=== PATIENT | female | born 1935 | race Caucasian/White ===

== ENCOUNTER 2017-06-17 18:42 | Observation (INO) ==
[2017-06-17] MEDS ORDERED: ALUM/MAG/SIMETH/LIDO VISC 1:1 30 ML BOTTLE PO STA (19:46)
[2017-06-17] MEDS ORDERED: PANTOPRAZOLE 40 MG VIAL IV STA (19:46)
[2017-06-17 19:56] LABS: Basophils % 0.2 % (0.0-0.8); Eosinophils # 0.2 10*3/uL (0.0-0.87); Eosinophils % 1.7 % (0.00-10.9); Hematocrit 31.7 VOL% (35.7-47.0); Hemoglobin 10.8 GM/DL (12.0-16.0); Immature Granulocytes % 0.5 %; Immature Granulocytes Absolute 0.06 #; Lymphocytes # 1.2 10*3/uL (1.4-4.0); Lymphocytes % 9.9 % (21.3-54.2); Mean Corpuscular HGB Conc 34.1 GM/DL (32-36); Mean Corpuscular Hemoglobin 29 PG (27-34); Mean Corpuscular Volume 83.9 FL (87-102); Mean Platelet Volume 11.4 FL (9.6-12.0); Monocytes # 1.2 10*3/uL (0.11-0.8); Monocytes % 9.8 % (1.7-12.7); Neutrophils # 9.4 10*3/uL (1.4-7.4); Neutrophils % 77.9 % (38.7-73.9); Platelet Count 195 T/CUMM (130-400); Red Blood Count 3.78 MC/CUMM (3.8-5.5); Red Cell Distribution Width 13.3 % (9.3-17.3); White Blood Count 12.1 T/CUMM (4-12)
[2017-06-17 20:03] LABS: INR 1.1; PT Patient Result 11.8 SECS; Partial Thromboplastin Time 28.6 SECS (0-40)
[2017-06-17] MEDS ORDERED: ALUM/MAG/SIMETH/LIDO VISC 1:1 30 ML BOTTLE PO ONE (20:07)
[2017-06-17] MEDS ORDERED: PANTOPRAZOLE 40 MG VIAL IV ONE (20:07)
[2017-06-17 20:11] LABS: Alanine Aminotransferase 18 U/L (13-56); Albumin 3.5 G/DL (3.4-5.0); Alkaline Phosphatase 62 U/L (45-117); Aspartate Amino Transferase 19 U/L (0-37); Blood Urea Nitrogen 87 MG/DL (7-18); Calcium 9.1 MG/DL (8.5-10.1); Glucose 187 MG/DL (74-106); Magnesium 2.9 MG/DL (1.8-2.4); Osmolality,Calculated 295.5 MOS/KG (273-304); Potassium 2.9 MMOL/L (3.5-5.1); Sodium 132 MMOL/L (136-145); Total Protein 7.8 G/DL (6.4-8.3); Troponin I Only 0.018 NG/ML (0.00-0.045)
[2017-06-17 22:11] LABS: Apearance,Urine CLEAR (Clear); Bacteria,Urine Occasional /HPF (Few); Bilirubin,Urine Negative (Negative); Blood, Urine Negative (Negative); Glucose,Urine (UA) Negative (Negative); Ketones,Urine Negative (Negative); Nitrite,Urine Negative (Negative); Protein,Urine Negative; RBC,Urine <1 /HPF (0-4); Urine Color Straw (Yellow); Urine Specific Gravity 1.006 (1.001-1.035); Urine Urobilinogen < 2.0 EU/DL (0.2-1.0); WBC,Urine <1 /HPF (0-6)
[2017-06-17] MEDS ORDERED: ONDANSETRON 4 MG/2 ML VIAL IV PRN (23:23)
[2017-06-17] MEDS ORDERED: ACETAMINOPHEN 325 MG TABLET PO PRN (23:23)
[2017-06-17] MEDS ORDERED: DEXTROSE 50% 25 GM/50 ML VIAL IV PRN (23:23)
[2017-06-17] MEDS ORDERED: GLUCAGON 1 MG VIAL IM PRN (23:23)
[2017-06-17] MEDS ORDERED: POTASSIUM CHLORIDE RIDER 10 MEQ in PREMIX 1 EACH IV PRN (23:38)
[2017-06-17] MEDS ORDERED: traMADol 50 MG TABLET PO PRN (23:39)
[2017-06-18] MEDS: POTASSIUM CHLORIDE 20 MEQ TABLET PO PRN ×4 (03:24→13:36)
[2017-06-18 07:41] LABS: Magnesium 2.8 MG/DL (1.8-2.4); Potassium 2.6 MMOL/L (3.5-5.1)
[2017-06-18 07:45] LABS: Risk Ratio 3.68; VLDL CHOLESTEROL 18.4 MG/DL
[2017-06-18] MEDS ORDERED: ENOXAPARIN 30 MG/0.3 ML SYRINGE SUBCUT SCH (09:00)
[2017-06-18] MEDS ORDERED: LOSARTAN 50 MG TABLET PO SCH (09:00)
[2017-06-18] MEDS ORDERED: NAPROXEN 500 MG TABLET PO SCH (09:00)
[2017-06-18] MEDS ORDERED: FUROSEMIDE 80 MG TABLET PO SCH (09:00)
[2017-06-18] MEDS: FERROUS SULFATE 325 MG TABLET PO SCH (09:39)
[2017-06-18] MEDS: CARVEDILOL 6.25 MG TABLET PO SCH ×2 (09:39→20:37)
[2017-06-18] MEDS: CHOLECALCIFEROL 400 UNIT TABLET PO SCH (09:40)
[2017-06-18] MEDS: DONEPEZIL 5 MG TABLET PO SCH (09:40)
[2017-06-18] MEDS: ASPIRIN 325 MG TABLET PO SCH (09:40)
[2017-06-18] MEDS: cloNIDine 0.1 MG TABLET PO SCH (09:40)
[2017-06-18] MEDS: CALCIUM (CARBONATE)/VITAMIN D 600 MG-400 UNIT TABLET PO SCH (09:40)
[2017-06-18] MEDS: PANTOPRAZOLE 40 MG TABLET PO SCH (09:41)
[2017-06-18] MEDS: INSULIN LISPRO 100 UNIT/ML SUBCUT SCH ×4 (09:52→20:37)
[2017-06-18] MEDS ORDERED: VALSARTAN 80 MG TABLET PO SCH (11:30)
[2017-06-18] MEDS ORDERED: FUROSEMIDE 40 MG TABLET PO SCH (16:00)
[2017-06-18] MEDS: APIXABAN 2.5 MG TABLET PO SCH (20:36)
[2017-06-18] MEDS ORDERED: SIMVASTATIN 20 MG TABLET PO SCH (21:00)
[2017-06-19] MEDS: POTASSIUM CHLORIDE 20 MEQ TABLET PO PRN ×3 (02:24→07:10)
[2017-06-19 07:25] LABS: Calcium 8.9 MG/DL (8.5-10.1); Osmolality,Calculated 295.1 MOS/KG (273-304); Potassium 4.2 MMOL/L (3.5-5.1)
[2017-06-19] MEDS ORDERED: metOLazone 2.5 MG TABLET PO SCH (09:00)
[2017-06-19] MEDS: CALCIUM (CARBONATE)/VITAMIN D 600 MG-400 UNIT TABLET PO SCH (09:37)
[2017-06-19] MEDS: PANTOPRAZOLE 40 MG TABLET PO SCH (09:37)
[2017-06-19] MEDS: DONEPEZIL 5 MG TABLET PO SCH (09:37)
[2017-06-19] MEDS: ASPIRIN 325 MG TABLET PO SCH (09:37)
[2017-06-19] MEDS: FERROUS SULFATE 325 MG TABLET PO SCH (09:37)
[2017-06-19] MEDS: cloNIDine 0.1 MG TABLET PO SCH (09:38)
[2017-06-19] MEDS: CARVEDILOL 6.25 MG TABLET PO SCH (09:38)
[2017-06-19] MEDS: APIXABAN 2.5 MG TABLET PO SCH (09:38)
[2017-06-19] MEDS: INSULIN LISPRO 100 UNIT/ML SUBCUT SCH ×3 (09:42→18:42)
[2017-06-19] MEDS: CHOLECALCIFEROL 400 UNIT TABLET PO SCH (09:43)
[2017-06-19] MEDS ORDERED: PROPOFOL 200 MG/20 ML VIAL IV ONE ×2 (14:46→15:24)
[2017-06-19] MEDS ORDERED: ETOMIDATE 20 MG/10 ML VIAL IV ONE ×2 (14:46→15:25)
[2017-06-19] MEDS ORDERED: ALBUTEROL/IPRATROPIUM 3 ML NEB RESP TX ONE (15:12)
[2017-06-19] MEDS ORDERED: DEXTROSE 50% 25 GM/50 ML VIAL IV PRN (16:48)
[2017-06-19] MEDS ORDERED: GLUCAGON 1 MG VIAL IM PRN (16:48)
[2017-06-19 19:47] VITALS: BP 95/61
== END 2017-06-19 18:30 | disposition home or self-care (01) ==
LOC: N.ED 18:42 → N.EDINP 18:42 → N.2E 23:53
PROVIDERS: ADMIT Internal Medicine Geriatric Medicine; ATTEND Internal Medicine Geriatric Medicine

== ENCOUNTER 2017-06-21 14:17 | Inpatient (IN) ==
[2017-06-21] MEDS ORDERED: ONDANSETRON 4 MG/2 ML VIAL IV PRN (16:45)
[2017-06-21] MEDS ORDERED: ACETAMINOPHEN 325 MG TABLET PO PRN (16:45)
[2017-06-21 16:47] LABS: Basophils % 0.2 % (0.0-0.8); Eosinophils % 0.2 % (0.00-10.9); Hematocrit 28.4 VOL% (35.7-47.0); Hemoglobin 9.6 GM/DL (12.0-16.0); Immature Granulocytes % 1.4 %; Immature Granulocytes Absolute 0.29 #; Lymphocytes # 0.5 10*3/uL (1.4-4.0); Lymphocytes % 2.3 % (21.3-54.2); Mean Corpuscular HGB Conc 33.8 GM/DL (32-36); Mean Corpuscular Hemoglobin 29 PG (27-34); Mean Corpuscular Volume 85.5 FL (87-102); Mean Platelet Volume 11.4 FL (9.6-12.0); Monocytes # 0.4 10*3/uL (0.11-0.8); Monocytes % 2.1 % (1.7-12.7); Neutrophils # 18.8 10*3/uL (1.4-7.4); Neutrophils % 93.8 % (38.7-73.9); Platelet Count 125 T/CUMM (130-400); Red Blood Count 3.32 MC/CUMM (3.8-5.5)
[2017-06-21] MEDS ORDERED: SODIUM CHLORIDE 0.9% 1,000 ML IV ONE (16:49)
[2017-06-21] MEDS ORDERED: DEXTROSE 50% 25 GM/50 ML VIAL IV PRN (16:52)
[2017-06-21] MEDS ORDERED: GLUCAGON 1 MG VIAL IM PRN (16:52)
[2017-06-21 17:48] LABS: Albumin 2.6 G/DL (3.4-5.0); Bilirubin,Total 3.2 MG/DL (0.2-1.0); Calcium 8.5 MG/DL (8.5-10.1); Osmolality,Calculated 289.7 MOS/KG (273-304); Potassium 3.9 MMOL/L (3.5-5.1); Total Protein 6.1 G/DL (6.4-8.3)
[2017-06-21 17:52] LABS: Lactic Acid 2.1 MMOL/L (0.4-2.0)
[2017-06-21 17:56] LABS: Band Neutrophils 20 % (0-10); Lymphocytes 4 % (20-55); Platelet Estimate Adequate; Segmented Neutrophils 73 % (50-85); Total Cells Counted 100
[2017-06-21 17:57] LABS: Hypochromasia Slight
[2017-06-21 17:57] LABS: INR 1.5; PT Patient Result 15.2 SECS
[2017-06-21] MEDS ORDERED: AMPICILLIN/SULBACTAM 3,000 MG in SODIUM CHLORIDE 0.9% 100 ML IV SCH (18:00)
[2017-06-21] MEDS: SODIUM CHLORIDE 0.9% 1,000 ML IV STA ×2 (18:23→20:27)
[2017-06-21 18:32] LABS: Amorphous Crystals,Urine Occasional /HPF (Few); Apearance,Urine CLOUDY (Clear); Bacteria,Urine Many /HPF (Few); Blood, Urine Small mg/dL (Negative); Glucose,Urine (UA) Negative (Negative); Ketones,Urine Negative (Negative); Nitrite,Urine Negative (Negative); Protein,Urine 30 MG/DL; RBC,Urine 3 /HPF (0-4); Urine Color Amber (Yellow); Urine Specific Gravity 1.017 (1.001-1.035); WBC,Urine 14 /HPF (0-6)
[2017-06-21 18:33] LABS: Bilirubin,Urine Small mg/dL (Negative)
[2017-06-21] MEDS ORDERED: PIPERACILLIN/TAZOBACTAM 3,375 MG VIAL IV ONE (18:39)
[2017-06-21] MEDS ORDERED: PIPERACILLIN/TAZOBACTAM 3,375 MG in SODIUM CHLORIDE 0.9% 100 ML IV SCH (19:30)
[2017-06-21] MEDS: SODIUM CHLORIDE 0.9% 1,000 ML IV SCH (19:42)
[2017-06-21] MEDS: NOREPINEPHRINE 8 MG in SODIUM CHLORIDE 0.9% 242 ML IV SCH ×2 (20:20→23:36)
[2017-06-21] MEDS: PIPERACILLIN/TAZOBACTAM 3,375 MG in SODIUM CHLORIDE 0.9% 100 ML IV SCH (20:21)
[2017-06-21] MEDS ORDERED: fentaNYL 100 MCG/2 ML VIAL IV ONE (20:44)
[2017-06-21] MEDS ORDERED: SODIUM CHLORIDE 0.9% 1,000 ML IV SCH (23:00)
[2017-06-21] MEDS ORDERED: ONDANSETRON 4 MG/2 ML VIAL ONE (23:00)
[2017-06-21] MEDS ORDERED: PROPOFOL 200 MG/20 ML VIAL IV ONE (23:00)
[2017-06-21] MEDS ORDERED: DEXAMETHASONE 10 MG/1 ML VIAL ONE (23:00)
[2017-06-21] MEDS ORDERED: ETOMIDATE 20 MG/10 ML VIAL IV ONE (23:00)
[2017-06-21] MEDS ORDERED: NOREPINEPHRINE 4 MG/4 ML VIAL IV ONE (23:26)
[2017-06-22] MEDS ORDERED: MIDAZOLAM 2 MG/2 ML VIAL ONE (00:12)
[2017-06-22] MEDS: fentaNYL 100 MCG/2 ML VIAL IV PRN ×3 (00:40→17:13)
[2017-06-22] MEDS: metroNIDAZOLE INJ 500 MG in PREMIX 1 EACH IV SCH ×4 (01:02→22:01)
[2017-06-22] MEDS ORDERED: SODIUM CHLORIDE 0.9% 500 ML IV ONE (02:30)
[2017-06-22] MEDS: NOREPINEPHRINE 16 MG in SODIUM CHLORIDE 0.9% 234 ML IV SCH ×2 (03:44→10:05)
[2017-06-22] MEDS: SODIUM CHLORIDE 0.9% 1,000 ML IV SCH ×3 (03:47→20:21)
[2017-06-22] MEDS: PHENYLEPHRINE INJ 160 MG in SODIUM CHLORIDE 0.9% 234 ML IV SCH ×3 (04:02→19:56)
[2017-06-22 04:48] LABS: Basophils # 0.1 10*3/uL (0.0-0.2); Basophils % 0.2 % (0.0-0.8); Hematocrit 28.5 VOL% (35.7-47.0); Hemoglobin 9.3 GM/DL (12.0-16.0); Immature Granulocytes % 9.3 %; Immature Granulocytes Absolute 2.31 #; Lymphocytes # 0.2 10*3/uL (1.4-4.0); Lymphocytes % 0.7 % (21.3-54.2); Mean Corpuscular HGB Conc 32.6 GM/DL (32-36); Mean Corpuscular Hemoglobin 28 PG (27-34); Mean Corpuscular Volume 86.4 FL (87-102); Mean Platelet Volume 11.3 FL (9.6-12.0); Monocytes # 0.4 10*3/uL (0.11-0.8); Monocytes % 1.5 % (1.7-12.7); Neutrophils # 21.9 10*3/uL (1.4-7.4); Neutrophils % 88.3 % (38.7-73.9); Platelet Count 149 T/CUMM (130-400); Red Cell Distribution Width 13.9 % (9.3-17.3); White Blood Count 24.8 T/CUMM (4-12)
[2017-06-22 05:35] LABS: Albumin 2.3 G/DL (3.4-5.0); Bilirubin,Total 4.3 MG/DL (0.2-1.0); Calcium 7.6 MG/DL (8.5-10.1); Total Protein 5.4 G/DL (6.4-8.3)
[2017-06-22] MEDS ORDERED: ACETAMINOPHEN 650 MG SUPP RECTAL PRN (06:02)
[2017-06-22] MEDS ORDERED: SODIUM CHLORIDE 0.9% 1,000 ML IV ONE (06:02)
[2017-06-22 06:06] LABS: Band Neutrophils 4 % (0-10); Lymphocytes 1 % (20-55); Segmented Neutrophils 93 % (50-85); Total Cells Counted 100
[2017-06-22 06:07] LABS: Burr Cells Slight; Giant Platelets Few; Hypochromasia Slight; Ovalocytes Slight; Platelet Estimate Normal
[2017-06-22] MEDS ORDERED: VANCOMYCIN INJ 1,500 MG in SODIUM CHLORIDE 0.9% 500 ML IV ONE (06:12)
[2017-06-22] MEDS ORDERED: VANCOMYCIN INJ 1,250 MG in SODIUM CHLORIDE 0.9% 250 ML IV PRN (06:30)
[2017-06-22] MEDS: PIPERACILLIN/TAZOBACTAM 3,375 MG in SODIUM CHLORIDE 0.9% 100 ML IV SCH ×2 (11:47→23:45)
[2017-06-22] MEDS ORDERED: ALBUTEROL/IPRATROPIUM 3 ML NEB RESP TX PRN (21:09)
[2017-06-22] MEDS: ALBUTEROL/IPRATROPIUM 3 ML NEB RESP TX SCH (23:29)
[2017-06-23] MEDS: PHENYLEPHRINE INJ 160 MG in SODIUM CHLORIDE 0.9% 234 ML IV SCH ×4 (02:20→17:48)
[2017-06-23] MEDS: ALBUTEROL/IPRATROPIUM 3 ML NEB RESP TX SCH ×6 (02:37→23:39)
[2017-06-23] MEDS: SODIUM CHLORIDE 0.9% 1,000 ML IV SCH ×2 (05:28→13:31)
[2017-06-23] MEDS: metroNIDAZOLE INJ 500 MG in PREMIX 1 EACH IV SCH ×3 (05:30→18:49)
[2017-06-23] MEDS: NOREPINEPHRINE 16 MG in SODIUM CHLORIDE 0.9% 234 ML IV SCH (05:32)
[2017-06-23 05:35] LABS: Basophils # 0.1 10*3/uL (0.0-0.2); Basophils % 0.3 % (0.0-0.8); Hematocrit 30.8 VOL% (35.7-47.0); Hemoglobin 9.7 GM/DL (12.0-16.0); Immature Granulocytes % 7.8 %; Immature Granulocytes Absolute 2.38 #; Lymphocytes # 0.6 10*3/uL (1.4-4.0); Lymphocytes % 1.8 % (21.3-54.2); Mean Corpuscular HGB Conc 31.5 GM/DL (32-36); Mean Corpuscular Hemoglobin 28 PG (27-34); Mean Platelet Volume 11.3 FL (9.6-12.0); Monocytes # 1.9 10*3/uL (0.11-0.8); Monocytes % 6.1 % (1.7-12.7); Neutrophils # 25.7 10*3/uL (1.4-7.4); Platelet Count 186 T/CUMM (130-400); Red Blood Count 3.46 MC/CUMM (3.8-5.5); Red Cell Distribution Width 14.6 % (9.3-17.3); White Blood Count 30.6 T/CUMM (4-12)
[2017-06-23 06:08] LABS: Albumin 2.2 G/DL (3.4-5.0); Bilirubin,Total 4.3 MG/DL (0.2-1.0); Calcium 7.4 MG/DL (8.5-10.1); Osmolality,Calculated 302.5 MOS/KG (273-304); Potassium 4.9 MMOL/L (3.5-5.1); Total Protein 5.4 G/DL (6.4-8.3)
[2017-06-23 06:37] LABS: Band Neutrophils 1 % (0-10); Hypochromasia 1+; Lymphocytes 3 % (20-55); Platelet Estimate Normal; Segmented Neutrophils 91 % (50-85); Total Cells Counted 100
[2017-06-23] MEDS: PIPERACILLIN/TAZOBACTAM 3,375 MG in SODIUM CHLORIDE 0.9% 100 ML IV SCH ×2 (11:45→23:11)
[2017-06-23] MEDS: CIPROFLOXACIN INJ 400 MG in PREMIX 1 EACH IV SCH (18:35)
[2017-06-23] MEDS: fentaNYL 100 MCG/2 ML VIAL IV PRN (21:29)
[2017-06-24] MEDS: metroNIDAZOLE INJ 500 MG in PREMIX 1 EACH IV SCH ×4 (00:13→18:11)
[2017-06-24] MEDS: PHENYLEPHRINE INJ 160 MG in SODIUM CHLORIDE 0.9% 234 ML IV SCH ×3 (01:15→17:23)
[2017-06-24] MEDS: NOREPINEPHRINE 16 MG in SODIUM CHLORIDE 0.9% 234 ML IV SCH (01:30)
[2017-06-24] MEDS: SODIUM CHLORIDE 0.9% 1,000 ML IV SCH ×2 (01:57→11:34)
[2017-06-24] MEDS: fentaNYL 100 MCG/2 ML VIAL IV PRN ×3 (03:20→11:45)
[2017-06-24] MEDS ORDERED: NITROGLYCERIN SL 0.4 MG TABLET SL PRN (03:33)
[2017-06-24] MEDS ORDERED: NITROGLYCERIN SL 0.4 MG TABLET SL ONE (03:36)
[2017-06-24 03:50] LABS: Basophils # 0.1 10*3/uL (0.0-0.2); Basophils % 0.2 % (0.0-0.8); Hematocrit 30.4 VOL% (35.7-47.0); Hemoglobin 9.7 GM/DL (12.0-16.0); Immature Granulocytes % 1.1 %; Immature Granulocytes Absolute 0.39 #; Lymphocytes # 0.8 10*3/uL (1.4-4.0); Lymphocytes % 2.4 % (21.3-54.2); Mean Corpuscular HGB Conc 31.9 GM/DL (32-36); Mean Corpuscular Hemoglobin 28 PG (27-34); Mean Corpuscular Volume 87.1 FL (87-102); Monocytes # 2.8 10*3/uL (0.11-0.8); Monocytes % 7.9 % (1.7-12.7); NRBC # 0.09 10*3/uL; Neutrophils # 30.9 10*3/uL (1.4-7.4); Neutrophils % 88.4 % (38.7-73.9); Platelet Count 175 T/CUMM (130-400); Red Blood Count 3.49 MC/CUMM (3.8-5.5); Red Cell Distribution Width 14.7 % (9.3-17.3); White Blood Count 34.9 T/CUMM (4-12)
[2017-06-24 03:59] LABS: INR 2.1
[2017-06-24 04:01] LABS: ABG Base Excess -10.8 MMOL/L (-2.5-2.5); ABG HCO3 15.9 MMOL/L (20-26); ABG PCO2 31.8 MM HG (35-48); ABG PH 7.282 (7.35-7.45)
[2017-06-24 04:07] LABS: PT Patient Result 21.4 SECS
[2017-06-24] MEDS: ALBUTEROL/IPRATROPIUM 3 ML NEB RESP TX SCH ×5 (04:10→20:29)
[2017-06-24 04:15] LABS: Calcium 7.2 MG/DL (8.5-10.1); Osmolality,Calculated 306.5 MOS/KG (273-304); Potassium 5.1 MMOL/L (3.5-5.1)
[2017-06-24 04:19] LABS: Albumin 2.1 G/DL (3.4-5.0); Bilirubin,Direct 3.66 MG/DL (0.0-0.20); Bilirubin,Indirect 0.7 MG/DL (0.0-1.0); Bilirubin,Total 4.4 MG/DL (0.2-1.0); Lactic Acid 1.8 MMOL/L (0.4-2.0); Total Protein 5.6 G/DL (6.4-8.3)
[2017-06-24 05:09] LABS: Band Neutrophils 1 % (0-10); Burr Cells Slight; Giant Platelets Few; Hypochromasia Slight; Lymphocytes 3 % (20-55); Nucleated Red Blood Cells 1 (0-5); Ovalocytes Slight; Platelet Estimate Normal; Segmented Neutrophils 84 % (50-85); Total Cells Counted 100
[2017-06-24] MEDS ORDERED: PHYTONADIONE 10 MG/1 ML AMP IV ONE (06:28)
[2017-06-24] MEDS ORDERED: SODIUM CHLORIDE 0.9% 250 ML IV PRN (06:28)
[2017-06-24] MEDS ORDERED: VANCOMYCIN INJ 1,500 MG in SODIUM CHLORIDE 0.9% 500 ML IV ONE (10:00)
[2017-06-24] MEDS: PIPERACILLIN/TAZOBACTAM 3,375 MG in SODIUM CHLORIDE 0.9% 100 ML IV SCH (11:34)
[2017-06-24 14:30] LABS: INR 1.8
[2017-06-24] MEDS ORDERED: LIDOCAINE 1%/EPI INJ 20 ML VIAL ONE (16:09)
[2017-06-24] MEDS: CIPROFLOXACIN INJ 400 MG in PREMIX 1 EACH IV SCH (17:24)
[2017-06-24] MEDS ORDERED: ROCURONIUM 100 MG/10 ML VIAL IV ONE (18:12)
[2017-06-24] MEDS ORDERED: ETOMIDATE 20 MG/10 ML VIAL IV ONE (18:12)
[2017-06-24] MEDS ORDERED: LIDOCAINE 1% 5 ML VIAL ONE (18:12)
[2017-06-24] MEDS ORDERED: SODIUM BICARBONATE 50 MEQ/50 ML VIAL IV ONE (18:12)
[2017-06-24] MEDS ORDERED: CALCIUM CHLORIDE 1,000 MG/10 ML VIAL IV ONE (18:12)
[2017-06-24] MEDS ORDERED: HEPARIN 5,000 UNIT/1 ML VIAL ONE (19:41)
[2017-06-24 19:42] LABS: ABG Base Excess -13.5 MMOL/L (-2.5-2.5); ABG Oxygen Saturation 99.9 % (95-100); ABG PCO2 31.8 MM HG (35-48); ABG PH 7.226 (7.35-7.45); ABG TCO2 12.2 MMOL/L (23-27); Glucose Heart Surgery 117 MG/DL (74-106); Hematocrit Heart Surgery 32.5 PERCENT (37-47); Hemoglobin Heart Surgery 10.5 G/DL (12.0-16.0); Ionized Calcium Arterial 1.19 MMOL/L (1.21-1.46); PCO2 Patient Temp Arterial 31.8 MMHG; PH Patient Temp Arterial 7.226; Patient Temperature 37 CELCIUS; Potassium Heart/CVR 4.9 MMOL/L (3.5-5.1); Sodium Heart/CVR 135 MMOL/L (135-145)
[2017-06-24] MEDS ORDERED: SODIUM BICARBONATE 50 MEQ/50 ML SYRINGE IV ONE (19:49)
[2017-06-24] MEDS ORDERED: INFLUENZA VIRUS VACCINE 0.5 ML SYRINGE IM ONE (19:55)
[2017-06-24 21:13] LABS: ABG Base Excess -11.1 MMOL/L (-2.5-2.5); ABG HCO3 15.7 MMOL/L (20-26); ABG PCO2 33.4 MM HG (35-48); ABG PH 7.263 (7.35-7.45); ABG TCO2 13.7 MMOL/L (23-27)
[2017-06-24 21:16] LABS: INR 1.5; PT Patient Result 15.5 SECS; Partial Thromboplastin Time 31.5 SECS (0-40)
[2017-06-24] MEDS ORDERED: SEVOFLURANE 1 UNIT/15 MINUTE INH ONE (21:16)
[2017-06-24] MEDS ORDERED: MIDAZOLAM 10 MG/2 ML VIAL ONE (21:16)
[2017-06-24] MEDS ORDERED: fentaNYL 100 MCG/2 ML VIAL ONE (21:16)
[2017-06-24 21:17] LABS: Basophils % 0.1 % (0.0-0.8); Hematocrit 32.4 VOL% (35.7-47.0); Hemoglobin 10.6 GM/DL (12.0-16.0); Immature Granulocytes % 1.6 %; Immature Granulocytes Absolute 0.36 #; Lymphocytes # 0.8 10*3/uL (1.4-4.0); Lymphocytes % 3.6 % (21.3-54.2); Mean Corpuscular HGB Conc 32.7 GM/DL (32-36); Mean Corpuscular Hemoglobin 29 PG (27-34); Mean Corpuscular Volume 88.3 FL (87-102); Mean Platelet Volume 11.1 FL (9.6-12.0); Monocytes # 1.3 10*3/uL (0.11-0.8); Neutrophils # 19.3 10*3/uL (1.4-7.4); Neutrophils % 88.7 % (38.7-73.9); Red Blood Count 3.67 MC/CUMM (3.8-5.5); White Blood Count 21.8 T/CUMM (4-12)
[2017-06-24] MEDS ORDERED: SODIUM CHLORIDE 0.9% 2,000 ML IV ONE (21:17)
[2017-06-24] MEDS ORDERED: MIDAZOLAM 2 MG/2 ML VIAL ONE (21:17)
[2017-06-24] MEDS ORDERED: ePHEDrine 50 MG/ML AMP ONE (21:17)
[2017-06-24 21:24] LABS: Platelet Count 88 T/CUMM (130-400)
[2017-06-24 21:33] LABS: Albumin 2.3 G/DL (3.4-5.0); Bilirubin,Total 4.5 MG/DL (0.2-1.0); Calcium 8.4 MG/DL (8.5-10.1); Lactic Acid 1.7 MMOL/L (0.4-2.0); Potassium 4.8 MMOL/L (3.5-5.1)
[2017-06-24] MEDS: SODIUM BICARB INJ 150 MEQ in DEXTROSE 5% 1,000 ML IV SCH (21:42)
[2017-06-24] MEDS: PROPOFOL 1,000 MG/100 ML BOTTLE IV SCH (22:00)
[2017-06-25] MEDS: ALBUTEROL/IPRATROPIUM 3 ML NEB RESP TX SCH ×7 (00:15→23:43)
[2017-06-25] MEDS: fentaNYL 100 MCG/2 ML VIAL IV PRN (01:04)
[2017-06-25] MEDS: metroNIDAZOLE INJ 500 MG in PREMIX 1 EACH IV SCH ×3 (01:32→12:43)
[2017-06-25] MEDS: NOREPINEPHRINE 16 MG in SODIUM CHLORIDE 0.9% 234 ML IV SCH (01:35)
[2017-06-25] MEDS ORDERED: SODIUM BICARBONATE 50 MEQ/50 ML SYRINGE IV ONE ×2 (02:18→02:24)
[2017-06-25 04:18] LABS: ABG Base Excess -8.3 MMOL/L (-2.5-2.5); ABG HCO3 17.8 MMOL/L (20-26); ABG Oxygen Saturation 99.8 % (95-100); ABG PCO2 29.9 MM HG (35-48); ABG PH 7.346 (7.35-7.45); ABG TCO2 14.8 MMOL/L (23-27)
[2017-06-25 04:24] LABS: Basophils # 0.1 10*3/uL (0.0-0.2); Basophils % 0.2 % (0.0-0.8); Hematocrit 32.3 VOL% (35.7-47.0); Immature Granulocytes % 1.4 %; Immature Granulocytes Absolute 0.34 #; Lymphocytes # 0.7 10*3/uL (1.4-4.0); Mean Corpuscular HGB Conc 34.1 GM/DL (32-36); Mean Corpuscular Hemoglobin 29 PG (27-34); Mean Platelet Volume 11.1 FL (9.6-12.0); Monocytes # 1.6 10*3/uL (0.11-0.8); Monocytes % 6.3 % (1.7-12.7); NRBC # 0.07 10*3/uL; Neutrophils # 21.9 10*3/uL (1.4-7.4); Neutrophils % 89.1 % (38.7-73.9); Platelet Count 106 T/CUMM (130-400); Red Cell Distribution Width 15.2 % (9.3-17.3); White Blood Count 24.6 T/CUMM (4-12)
[2017-06-25 04:52] LABS: Albumin 2.2 G/DL (3.4-5.0); Bilirubin,Total 6.4 MG/DL (0.2-1.0); Calcium 8.3 MG/DL (8.5-10.1); Osmolality,Calculated 319.1 MOS/KG (273-304); Potassium 4.7 MMOL/L (3.5-5.1); Total Protein 5.2 G/DL (6.4-8.3)
[2017-06-25] MEDS: MIDAZOLAM 2 MG/2 ML VIAL IV PRN ×4 (04:57→20:48)
[2017-06-25 05:25] LABS: Band Neutrophils 1 % (0-10); Burr Cells Slight; Hypochromasia Slight; Lymphocytes 5 % (20-55); Ovalocytes Slight; Platelet Estimate Decreased; Segmented Neutrophils 88 % (50-85); Total Cells Counted 100
[2017-06-25 05:41] LABS: Band Neutrophils 2 % (0-10); Lymphocytes 4 % (20-55); Platelet Estimate Decreased; Segmented Neutrophils 86 % (50-85)
[2017-06-25 05:42] LABS: Ovalocytes Few; Total Cells Counted 100
[2017-06-25] MEDS: PHENYLEPHRINE INJ 160 MG in SODIUM CHLORIDE 0.9% 234 ML IV SCH ×3 (06:16→20:41)
[2017-06-25] MEDS: SODIUM BICARB INJ 150 MEQ in DEXTROSE 5% 1,000 ML IV SCH ×2 (08:57→17:49)
[2017-06-25] MEDS: PIPERACILLIN/TAZOBACTAM 3,375 MG in SODIUM CHLORIDE 0.9% 100 ML IV SCH ×3 (10:56→22:24)
[2017-06-25] MEDS ORDERED: GLUCAGON 1 MG VIAL IM PRN (11:54)
[2017-06-25] MEDS ORDERED: DEXTROSE 50% 25 GM/50 ML VIAL IV PRN (11:54)
[2017-06-25] MEDS: INSULIN LISPRO 100 UNIT/ML SUBCUT SCH ×2 (12:34→18:38)
[2017-06-25] MEDS ORDERED: DAPTOmycin 500 MG in SODIUM CHLORIDE 0.9% 50 ML IV SCH (16:30)
[2017-06-25] MEDS: CIPROFLOXACIN INJ 400 MG in PREMIX 1 EACH IV SCH (17:48)
[2017-06-25] MEDS: PROPOFOL 1,000 MG/100 ML BOTTLE IV SCH (22:16)
[2017-06-26] MEDS: INSULIN LISPRO 100 UNIT/ML SUBCUT SCH ×4 (00:42→18:46)
[2017-06-26] MEDS: MIDAZOLAM 2 MG/2 ML VIAL IV PRN (02:21)
[2017-06-26] MEDS: ALBUTEROL/IPRATROPIUM 3 ML NEB RESP TX SCH ×5 (03:26→19:34)
[2017-06-26] MEDS: SODIUM BICARB INJ 150 MEQ in DEXTROSE 5% 1,000 ML IV SCH ×2 (03:31→15:10)
[2017-06-26 04:52] LABS: ABG Base Excess -0.8 MMOL/L (-2.5-2.5); ABG HCO3 23.8 MMOL/L (20-26); ABG Oxygen Saturation 99.9 % (95-100); ABG PCO2 29.8 MM HG (35-48); ABG PH 7.476 (7.35-7.45); ABG TCO2 19.8 MMOL/L (23-27)
[2017-06-26 05:08] LABS: Basophils % 0.2 % (0.0-0.8); Eosinophils # 0.1 10*3/uL (0.0-0.87); Eosinophils % 0.3 % (0.00-10.9); Hematocrit 30.5 VOL% (35.7-47.0); Hemoglobin 10.6 GM/DL (12.0-16.0); Immature Granulocytes % 3.6 %; Immature Granulocytes Absolute 0.86 #; Lymphocytes # 1.3 10*3/uL (1.4-4.0); Lymphocytes % 5.4 % (21.3-54.2); Mean Corpuscular HGB Conc 34.8 GM/DL (32-36); Mean Corpuscular Hemoglobin 28 PG (27-34); Mean Corpuscular Volume 81.1 FL (87-102); Mean Platelet Volume 12.2 FL (9.6-12.0); Monocytes % 8.4 % (1.7-12.7); NRBC # 0.37 10*3/uL; Neutrophils # 19.7 10*3/uL (1.4-7.4); Neutrophils % 82.1 % (38.7-73.9); Platelet Count 101 T/CUMM (130-400); Red Blood Count 3.76 MC/CUMM (3.8-5.5); Red Cell Distribution Width 14.9 % (9.3-17.3)
[2017-06-26 05:30] LABS: Albumin 1.9 G/DL (3.4-5.0); Bilirubin,Direct 6.47 MG/DL (0.0-0.20); Bilirubin,Total 7.7 MG/DL (0.2-1.0); Calcium 7.3 MG/DL (8.5-10.1); Osmolality,Calculated 325.1 MOS/KG (273-304); Potassium 3.8 MMOL/L (3.5-5.1); Total Protein 4.6 G/DL (6.4-8.3)
[2017-06-26 05:52] LABS: Band Neutrophils 2 % (0-10); Giant Platelets Few; Hypochromasia 1+; Lymphocytes 6 % (20-55); Macrocytosis Slight; Nucleated Red Blood Cells 2 (0-5); Ovalocytes Slight; Platelet Estimate Decreased; Polychromasia Slight; Segmented Neutrophils 79 % (50-85); Total Cells Counted 100
[2017-06-26] MEDS: NOREPINEPHRINE 16 MG in SODIUM CHLORIDE 0.9% 234 ML IV SCH (07:41)
[2017-06-26] MEDS: PHENYLEPHRINE INJ 160 MG in SODIUM CHLORIDE 0.9% 234 ML IV SCH ×2 (07:42→16:01)
[2017-06-26] MEDS: fentaNYL 100 MCG/2 ML VIAL IV PRN ×4 (08:16→21:16)
[2017-06-26] MEDS: PIPERACILLIN/TAZOBACTAM 3,375 MG in SODIUM CHLORIDE 0.9% 100 ML IV SCH (12:04)
[2017-06-26] MEDS: LINEZOLID INJ 600 MG in PREMIX 1 EACH IV SCH (15:29)
[2017-06-26] MEDS: PROPOFOL 1,000 MG/100 ML BOTTLE IV SCH (19:00)
[2017-06-26] MEDS: INSULIN GLARGINE 100 UNIT/ML SUBCUT SCH (21:21)
[2017-06-27] MEDS: PIPERACILLIN/TAZOBACTAM 3,375 MG in SODIUM CHLORIDE 0.9% 100 ML IV SCH ×3 (00:01→23:49)
[2017-06-27] MEDS: HYDROmorphone 2 MG/1 ML VIAL IV PRN ×2 (00:03→11:29)
[2017-06-27] MEDS: INSULIN LISPRO 100 UNIT/ML SUBCUT SCH ×5 (00:12→23:54)
[2017-06-27] MEDS: ALBUTEROL/IPRATROPIUM 3 ML NEB RESP TX SCH ×6 (00:18→19:36)
[2017-06-27] MEDS: LINEZOLID INJ 600 MG in PREMIX 1 EACH IV SCH ×2 (03:23→15:04)
[2017-06-27] MEDS: PHENYLEPHRINE INJ 160 MG in SODIUM CHLORIDE 0.9% 234 ML IV SCH (03:23)
[2017-06-27] MEDS: fentaNYL 100 MCG/2 ML VIAL IV PRN ×3 (04:13→23:57)
[2017-06-27 05:11] LABS: ABG Base Excess 4.4 MMOL/L (-2.5-2.5); ABG HCO3 28.4 MMOL/L (20-26); ABG Oxygen Saturation 99.4 % (95-100); ABG PCO2 31.4 MM HG (35-48); ABG PH 7.536 (7.35-7.45); ABG TCO2 23.9 MMOL/L (23-27); Allen Test Positive; Pt O2 Delivery Device Ventilator
[2017-06-27] MEDS: NOREPINEPHRINE 16 MG in SODIUM CHLORIDE 0.9% 234 ML IV SCH ×2 (05:17→23:55)
[2017-06-27 05:43] LABS: Basophils % 0.2 % (0.0-0.8); Eosinophils # 0.2 10*3/uL (0.0-0.87); Eosinophils % 0.9 % (0.00-10.9); Hematocrit 31.6 VOL% (35.7-47.0); Hemoglobin 10.9 GM/DL (12.0-16.0); Immature Granulocytes % 4.7 %; Immature Granulocytes Absolute 1.01 #; Lymphocytes # 2.2 10*3/uL (1.4-4.0); Mean Corpuscular HGB Conc 34.5 GM/DL (32-36); Mean Corpuscular Hemoglobin 28 PG (27-34); Mean Platelet Volume 12.3 FL (9.6-12.0); Monocytes # 2.2 10*3/uL (0.11-0.8); Monocytes % 10.3 % (1.7-12.7); NRBC # 0.83 10*3/uL; Neutrophils # 15.9 10*3/uL (1.4-7.4); Neutrophils % 73.9 % (38.7-73.9); Red Cell Distribution Width 15.3 % (9.3-17.3); White Blood Count 21.5 T/CUMM (4-12)
[2017-06-27 05:44] LABS: Platelet Count 81 T/CUMM (130-400)
[2017-06-27] MEDS: SODIUM BICARB INJ 150 MEQ in DEXTROSE 5% 1,000 ML IV SCH ×6 (05:48→21:41)
[2017-06-27 06:18] LABS: Albumin 1.8 G/DL (3.4-5.0); Bilirubin,Total 9.1 MG/DL (0.2-1.0); Calcium 7.3 MG/DL (8.5-10.1); Osmolality,Calculated 320.1 MOS/KG (273-304); Potassium 3.8 MMOL/L (3.5-5.1); Total Protein 4.6 G/DL (6.4-8.3)
[2017-06-27 06:29] LABS: Band Neutrophils 1 % (0-10); Lymphocytes 8 % (20-55); Nucleated Red Blood Cells 6 (0-5); Platelet Estimate Decreased; Segmented Neutrophils 78 % (50-85); Total Cells Counted 100
[2017-06-27 06:30] LABS: Burr Cells Slight; Giant Platelets Few; Hypochromasia 1+; Macrocytosis Slight; Ovalocytes Slight; Polychromasia Slight
[2017-06-27] MEDS ORDERED: PANTOPRAZOLE 40 MG VIAL IV SCH (09:00)
[2017-06-27] MEDS: LANSOPRAZOLE ODT 30 MG TABLET NG SCH (12:08)
[2017-06-27] MEDS ORDERED: GENTAMICIN INJ 80 MG in PREMIX 1 EACH IV SCH (20:00)
[2017-06-27] MEDS ORDERED: GENTAMICIN INJ 200 MG in SODIUM CHLORIDE 0.9% 100 ML IV PRN (20:37)
[2017-06-27] MEDS: MIDAZOLAM 2 MG/2 ML VIAL IV PRN (20:43)
[2017-06-27] MEDS: INSULIN GLARGINE 100 UNIT/ML SUBCUT SCH (20:43)
[2017-06-27] MEDS ORDERED: GENTAMICIN IV PRN (21:00)
[2017-06-27] MEDS ORDERED: SODIUM CHLORIDE 0.9% IV PRN (21:00)
[2017-06-27] MEDS ORDERED: SODIUM CHLORIDE 0.9% IV ONE (21:00)
[2017-06-27] MEDS ORDERED: GENTAMICIN IV ONE (21:00)
[2017-06-27] MEDS: PROPOFOL 1,000 MG/100 ML BOTTLE IV SCH (21:33)
[2017-06-27] MEDS ORDERED: DAPTOmycin 350 MG in SODIUM CHLORIDE 0.9% 50 ML IV SCH (23:00)
[2017-06-28] MEDS: ALBUTEROL/IPRATROPIUM 3 ML NEB RESP TX SCH ×7 (00:31→23:05)
[2017-06-28 03:21] LABS: ABG Base Excess 7.1 MMOL/L (-2.5-2.5); ABG HCO3 30.9 MMOL/L (20-26); ABG Oxygen Saturation 99.3 % (95-100); ABG PCO2 30.7 MM HG (35-48); ABG PH 7.582 (7.35-7.45); ABG TCO2 25.9 MMOL/L (23-27); Pt O2 Delivery Device Ventilator
[2017-06-28 04:41] LABS: Basophils % 0.1 % (0.0-0.8); Eosinophils # 0.4 10*3/uL (0.0-0.87); Eosinophils % 2.4 % (0.00-10.9); Hematocrit 30.3 VOL% (35.7-47.0); Hemoglobin 10.5 GM/DL (12.0-16.0); Immature Granulocytes % 2.7 %; Immature Granulocytes Absolute 0.45 #; Lymphocytes # 1.6 10*3/uL (1.4-4.0); Lymphocytes % 9.6 % (21.3-54.2); Mean Corpuscular HGB Conc 34.7 GM/DL (32-36); Mean Corpuscular Hemoglobin 28 PG (27-34); Mean Corpuscular Volume 80.6 FL (87-102); Mean Platelet Volume 12.3 FL (9.6-12.0); Monocytes # 1.4 10*3/uL (0.11-0.8); Monocytes % 8.3 % (1.7-12.7); Neutrophils # 12.6 10*3/uL (1.4-7.4); Neutrophils % 76.9 % (38.7-73.9); Platelet Count 86 T/CUMM (130-400); Red Blood Count 3.76 MC/CUMM (3.8-5.5); Red Cell Distribution Width 15.6 % (9.3-17.3); White Blood Count 16.4 T/CUMM (4-12)
[2017-06-28 05:08] LABS: Magnesium 1.9 MG/DL (1.8-2.4); Phosphorous 4.2 MG/DL (2.5-4.9); Prealbumin 5.9 MG/DL (20-40)
[2017-06-28 05:23] LABS: Anisocytosis 1+; Eosinophils 1 % (0-10); Lymphocytes 10 % (20-55); Nucleated Red Blood Cells 3 (0-5); Ovalocytes Few; Platelet Estimate Decreased; Segmented Neutrophils 81 % (50-85); Total Cells Counted 100
[2017-06-28 05:56] LABS: Albumin 1.6 G/DL (3.4-5.0); Bilirubin,Direct 7.49 MG/DL (0.0-0.20); Calcium 7.2 MG/DL (8.5-10.1); Osmolality,Calculated 318.1 MOS/KG (273-304); Potassium 3.3 MMOL/L (3.5-5.1); Total Protein 4.4 G/DL (6.4-8.3)
[2017-06-28] MEDS: fentaNYL 100 MCG/2 ML VIAL IV PRN (06:36)
[2017-06-28] MEDS: INSULIN LISPRO 100 UNIT/ML SUBCUT SCH ×3 (06:49→18:35)
[2017-06-28] MEDS: LANSOPRAZOLE ODT 30 MG TABLET NG SCH (09:35)
[2017-06-28] MEDS: PHENYLEPHRINE INJ 160 MG in SODIUM CHLORIDE 0.9% 234 ML IV SCH (10:38)
[2017-06-28] MEDS: SODIUM BICARB INJ 150 MEQ in DEXTROSE 5% 1,000 ML IV SCH (11:35)
[2017-06-28] MEDS: PIPERACILLIN/TAZOBACTAM 3,375 MG in SODIUM CHLORIDE 0.9% 100 ML IV SCH ×2 (11:38→23:39)
[2017-06-28] MEDS ORDERED: TIGECYCLINE 100 MG in SODIUM CHLORIDE 0.9% 100 ML IV ONE (12:30)
[2017-06-28] MEDS ORDERED: MAGNESIUM SULF RIDER 2 GM in PREMIX 1 EACH IV PRN (12:52)
[2017-06-28] MEDS ORDERED: MAGNESIUM SULF RIDER 4 GM in PREMIX 1 EACH IV PRN (12:52)
[2017-06-28] MEDS: NOREPINEPHRINE 16 MG in SODIUM CHLORIDE 0.9% 234 ML IV SCH (13:25)
[2017-06-28] MEDS ORDERED: GENTAMICIN INJ 100 ML IV PRN (15:00)
[2017-06-28] MEDS: PROPOFOL 1,000 MG/100 ML BOTTLE IV SCH (15:30)
[2017-06-28] MEDS: TIGECYCLINE 50 MG in SODIUM CHLORIDE 0.9% 50 ML IV SCH (19:44)
[2017-06-28] MEDS ORDERED: diphenhydrAMINE CAP 25 MG CAPSULE PO PRN (19:58)
[2017-06-28] MEDS ORDERED: ONDANSETRON 4 MG TABLET PO PRN (19:58)
[2017-06-28] MEDS ORDERED: cloNIDine 0.1 MG TABLET PO PRN (19:58)
[2017-06-28] MEDS ORDERED: traMADol 50 MG TABLET PO PRN (19:58)
[2017-06-28] MEDS: INSULIN GLARGINE 100 UNIT/ML SUBCUT SCH (20:56)
[2017-06-28] MEDS: CARVEDILOL 6.25 MG TABLET PO SCH (20:57)
[2017-06-28] MEDS: HYDROmorphone 2 MG/1 ML VIAL IV PRN (20:57)
[2017-06-28] MEDS: ASCORBIC ACID 500 MG TABLET PO SCH (20:57)
[2017-06-28] MEDS: APIXABAN 2.5 MG TABLET PO SCH (20:57)
[2017-06-28] MEDS: SIMVASTATIN 20 MG TABLET PO SCH (20:58)
[2017-06-29] MEDS: INSULIN LISPRO 100 UNIT/ML SUBCUT SCH ×5 (00:23→23:55)
[2017-06-29] MEDS: TIGECYCLINE 50 MG in SODIUM CHLORIDE 0.9% 50 ML IV SCH ×2 (00:23→13:49)
[2017-06-29] MEDS: NOREPINEPHRINE 16 MG in SODIUM CHLORIDE 0.9% 234 ML IV SCH (00:54)
[2017-06-29] MEDS: SODIUM BICARB INJ 150 MEQ in DEXTROSE 5% 1,000 ML IV SCH ×2 (01:16→11:12)
[2017-06-29] MEDS: ALBUTEROL/IPRATROPIUM 3 ML NEB RESP TX SCH ×6 (02:19→23:20)
[2017-06-29] MEDS: PROPOFOL 1,000 MG/100 ML BOTTLE IV SCH ×3 (02:54→23:30)
[2017-06-29 06:22] LABS: ABG Base Excess 9.2 MMOL/L (-2.5-2.5); ABG Oxygen Saturation 99.3 % (95-100); ABG PCO2 36.4 MM HG (35-48); ABG TCO2 25.4 MMOL/L (23-27)
[2017-06-29 06:33] LABS: Basophils % 0.2 % (0.0-0.8); Eosinophils # 0.3 10*3/uL (0.0-0.87); Hematocrit 31.4 VOL% (35.7-47.0); Immature Granulocytes % 1.7 %; Immature Granulocytes Absolute 0.28 #; Lymphocytes # 1.3 10*3/uL (1.4-4.0); Lymphocytes % 7.8 % (21.3-54.2); Mean Corpuscular Hemoglobin 28 PG (27-34); Mean Corpuscular Volume 80.7 FL (87-102); Mean Platelet Volume 12.7 FL (9.6-12.0); Monocytes # 1.1 10*3/uL (0.11-0.8); Monocytes % 6.6 % (1.7-12.7); NRBC # 0.06 10*3/uL; Neutrophils # 13.7 10*3/uL (1.4-7.4); Neutrophils % 81.7 % (38.7-73.9); Platelet Count 103 T/CUMM (130-400); Red Blood Count 3.89 MC/CUMM (3.8-5.5); Red Cell Distribution Width 16.1 % (9.3-17.3); White Blood Count 16.8 T/CUMM (4-12)
[2017-06-29 06:51] LABS: Albumin 1.5 G/DL (3.4-5.0); Bilirubin,Direct 6.11 MG/DL (0.0-0.20); Bilirubin,Indirect 1.3 MG/DL (0.0-1.0); Bilirubin,Total 7.4 MG/DL (0.2-1.0); Total Protein 5.3 G/DL (6.4-8.3)
[2017-06-29 06:52] LABS: Albumin 1.6 G/DL (3.4-5.0); Bilirubin,Total 8.3 MG/DL (0.2-1.0); Calcium 7.5 MG/DL (8.5-10.1); Osmolality,Calculated 314.1 MOS/KG (273-304); Potassium 3.3 MMOL/L (3.5-5.1); Total Protein 4.8 G/DL (6.4-8.3)
[2017-06-29 07:34] LABS: Calcium 7.3 MG/DL (8.5-10.1); Magnesium 1.9 MG/DL (1.8-2.4); Osmolality,Calculated 313.3 MOS/KG (273-304); Potassium 3.3 MMOL/L (3.5-5.1)
[2017-06-29] MEDS ORDERED: GENTAMICIN INJ 120 MG in PREMIX 1 EACH IV ONE (08:00)
[2017-06-29] MEDS ORDERED: POTASSIUM CHLORIDE RIDER 10 MEQ in PREMIX 1 EACH IV PRN (08:57)
[2017-06-29] MEDS ORDERED: FUROSEMIDE 80 MG TABLET PO SCH (09:00)
[2017-06-29] MEDS: LOSARTAN 50 MG TABLET PO SCH (09:43)
[2017-06-29] MEDS: ASPIRIN CHEW 81 MG TABLET PO SCH (09:44)
[2017-06-29] MEDS: CALCIUM (CARBONATE)/VITAMIN D 600 MG-400 UNIT TABLET PO SCH (09:44)
[2017-06-29] MEDS: CHOLECALCIFEROL 400 UNIT TABLET PO SCH (09:44)
[2017-06-29] MEDS: CARVEDILOL 6.25 MG TABLET PO SCH ×2 (09:45→21:02)
[2017-06-29] MEDS: ASCORBIC ACID 500 MG TABLET PO SCH ×2 (09:45→21:02)
[2017-06-29] MEDS: PANTOPRAZOLE 40 MG TABLET PO SCH (09:45)
[2017-06-29] MEDS: FUROSEMIDE 40 MG/4 ML VIAL IV SCH (09:45)
[2017-06-29] MEDS: APIXABAN 2.5 MG TABLET PO SCH ×2 (09:45→21:02)
[2017-06-29] MEDS: LANSOPRAZOLE ODT 30 MG TABLET NG SCH (09:45)
[2017-06-29] MEDS: DONEPEZIL 5 MG TABLET PO SCH (09:45)
[2017-06-29] MEDS: POTASSIUM CHLORIDE RIDER 20 MEQ in PREMIX 1 EACH IV PRN ×3 (09:46→21:04)
[2017-06-29] MEDS: FERROUS SULFATE 325 MG TABLET PO SCH (09:51)
[2017-06-29] MEDS: PIPERACILLIN/TAZOBACTAM 3,375 MG in SODIUM CHLORIDE 0.9% 100 ML IV SCH ×2 (11:11→22:57)
[2017-06-29] MEDS: PHENYLEPHRINE INJ 160 MG in SODIUM CHLORIDE 0.9% 234 ML IV SCH ×2 (17:57→23:30)
[2017-06-29] MEDS: SIMVASTATIN 20 MG TABLET PO SCH (21:02)
[2017-06-29] MEDS: INSULIN GLARGINE 100 UNIT/ML SUBCUT SCH (21:02)
[2017-06-29] MEDS ORDERED: HEPARIN/NACL 0.9% 2 UNITS/ML 500 ML IV ONE (23:05)
[2017-06-29] MEDS: HYDROmorphone 2 MG/1 ML VIAL IV PRN (23:10)
[2017-06-30] MEDS: NOREPINEPHRINE 16 MG in SODIUM CHLORIDE 0.9% 234 ML IV SCH ×2 (00:11→19:57)
[2017-06-30] MEDS: TIGECYCLINE 50 MG in SODIUM CHLORIDE 0.9% 50 ML IV SCH ×2 (00:45→12:58)
[2017-06-30] MEDS: ALBUTEROL/IPRATROPIUM 3 ML NEB RESP TX SCH ×6 (03:25→23:14)
[2017-06-30] MEDS: INSULIN LISPRO 100 UNIT/ML SUBCUT SCH ×3 (05:48→19:13)
[2017-06-30 06:16] LABS: ABG Base Excess 8.6 MMOL/L (-2.5-2.5); ABG HCO3 32.4 MMOL/L (20-26); ABG Oxygen Saturation 99.9 % (95-100); ABG PCO2 34.4 MM HG (35-48); ABG PH 7.565 (7.35-7.45); ABG TCO2 27.7 MMOL/L (23-27)
[2017-06-30 06:33] LABS: Basophils # 0.1 10*3/uL (0.0-0.2); Basophils % 0.2 % (0.0-0.8); Eosinophils # 0.4 10*3/uL (0.0-0.87); Eosinophils % 1.8 % (0.00-10.9); Hematocrit 31.2 VOL% (35.7-47.0); Hemoglobin 10.9 GM/DL (12.0-16.0); Immature Granulocytes % 1.3 %; Immature Granulocytes Absolute 0.28 #; Lymphocytes # 1.5 10*3/uL (1.4-4.0); Lymphocytes % 6.7 % (21.3-54.2); Mean Corpuscular HGB Conc 34.9 GM/DL (32-36); Mean Corpuscular Hemoglobin 28 PG (27-34); Mean Corpuscular Volume 80.4 FL (87-102); Mean Platelet Volume 12.1 FL (9.6-12.0); Monocytes # 1.6 10*3/uL (0.11-0.8); Monocytes % 7.1 % (1.7-12.7); NRBC # 0.02 10*3/uL; Neutrophils # 18.4 10*3/uL (1.4-7.4); Neutrophils % 82.9 % (38.7-73.9); Platelet Count 114 T/CUMM (130-400); Red Blood Count 3.88 MC/CUMM (3.8-5.5); Red Cell Distribution Width 16.7 % (9.3-17.3); White Blood Count 22.2 T/CUMM (4-12)
[2017-06-30 06:44] LABS: Calcium 7.6 MG/DL (8.5-10.1); Magnesium 1.7 MG/DL (1.8-2.4); Osmolality,Calculated 310.1 MOS/KG (273-304); Potassium 4.1 MMOL/L (3.5-5.1)
[2017-06-30 07:49] LABS: Eosinophils 2 % (0-10); Hypochromasia 2+; Lymphocytes 2 % (20-55); Macrocytosis 1+; Platelet Estimate Decreased; Polychromasia Slight; Segmented Neutrophils 91 % (50-85); Total Cells Counted 100
[2017-06-30] MEDS: PROPOFOL 1,000 MG/100 ML BOTTLE IV SCH ×2 (09:09→20:33)
[2017-06-30] MEDS: CHOLECALCIFEROL 400 UNIT TABLET PO SCH (09:10)
[2017-06-30] MEDS: LOSARTAN 50 MG TABLET PO SCH (09:11)
[2017-06-30] MEDS: FERROUS SULFATE 325 MG TABLET PO SCH (09:11)
[2017-06-30] MEDS: LANSOPRAZOLE ODT 30 MG TABLET NG SCH (09:11)
[2017-06-30] MEDS: PANTOPRAZOLE 40 MG TABLET PO SCH (09:11)
[2017-06-30] MEDS: CALCIUM (CARBONATE)/VITAMIN D 600 MG-400 UNIT TABLET PO SCH (09:11)
[2017-06-30] MEDS: CARVEDILOL 6.25 MG TABLET PO SCH (09:11)
[2017-06-30] MEDS: ASCORBIC ACID 500 MG TABLET PO SCH ×2 (09:12→21:10)
[2017-06-30] MEDS: APIXABAN 2.5 MG TABLET PO SCH ×2 (09:12→21:10)
[2017-06-30] MEDS: DONEPEZIL 5 MG TABLET PO SCH (09:12)
[2017-06-30] MEDS: ASPIRIN CHEW 81 MG TABLET PO SCH (09:12)
[2017-06-30] MEDS: FUROSEMIDE 40 MG/4 ML VIAL IV SCH (09:12)
[2017-06-30] MEDS: PIPERACILLIN/TAZOBACTAM 3,375 MG in SODIUM CHLORIDE 0.9% 100 ML IV SCH ×2 (11:40→23:36)
[2017-06-30] MEDS: PHENYLEPHRINE INJ 160 MG in SODIUM CHLORIDE 0.9% 234 ML IV SCH ×2 (19:57)
[2017-06-30] MEDS: INSULIN GLARGINE 100 UNIT/ML SUBCUT SCH (21:10)
[2017-06-30] MEDS: HYDROmorphone 2 MG/1 ML VIAL IV PRN (23:45)
[2017-07-01] MEDS: TIGECYCLINE 50 MG in SODIUM CHLORIDE 0.9% 50 ML IV SCH (00:35)
[2017-07-01] MEDS: SODIUM BICARB INJ 150 MEQ in DEXTROSE 5% 1,000 ML IV SCH (00:35)
[2017-07-01] MEDS: INSULIN LISPRO 100 UNIT/ML SUBCUT SCH ×3 (00:50→12:02)
[2017-07-01] MEDS: NOREPINEPHRINE 16 MG in SODIUM CHLORIDE 0.9% 234 ML IV SCH ×2 (01:55→11:51)
[2017-07-01] MEDS: ALBUTEROL/IPRATROPIUM 3 ML NEB RESP TX SCH ×4 (03:47→15:26)
[2017-07-01 04:48] LABS: ABG HCO3 30.9 MMOL/L (20-26); ABG PH 7.557 (7.35-7.45); ABG TCO2 25.8 MMOL/L (23-27)
[2017-07-01 04:53] LABS: Basophils % 0.2 % (0.0-0.8); Eosinophils # 0.3 10*3/uL (0.0-0.87); Eosinophils % 1.3 % (0.00-10.9); Hematocrit 30.6 VOL% (35.7-47.0); Hemoglobin 10.4 GM/DL (12.0-16.0); Immature Granulocytes % 0.8 %; Immature Granulocytes Absolute 0.17 #; Lymphocytes # 1.7 10*3/uL (1.4-4.0); Lymphocytes % 7.7 % (21.3-54.2); Mean Corpuscular Hemoglobin 28 PG (27-34); Mean Corpuscular Volume 81.8 FL (87-102); Monocytes # 1.8 10*3/uL (0.11-0.8); Monocytes % 8.2 % (1.7-12.7); NRBC # 0.02 10*3/uL; Neutrophils # 17.6 10*3/uL (1.4-7.4); Neutrophils % 81.8 % (38.7-73.9); Platelet Count 113 T/CUMM (130-400); Red Blood Count 3.74 MC/CUMM (3.8-5.5); Red Cell Distribution Width 17.2 % (9.3-17.3); White Blood Count 21.5 T/CUMM (4-12)
[2017-07-01 05:20] LABS: Band Neutrophils 1 % (0-10); Eosinophils 1 % (0-10); Giant Platelets Few; Hypochromasia 1+; Lymphocytes 7 % (20-55); Macrocytosis Slight; Ovalocytes Slight; Platelet Estimate Decreased; Segmented Neutrophils 87 % (50-85); Total Cells Counted 100
[2017-07-01 05:24] LABS: Calcium 7.4 MG/DL (8.5-10.1); Magnesium 1.8 MG/DL (1.8-2.4); Osmolality,Calculated 314.8 MOS/KG (273-304); Potassium 4.3 MMOL/L (3.5-5.1)
[2017-07-01 05:30] LABS: Albumin 1.3 G/DL (3.4-5.0); Bilirubin,Total 4.5 MG/DL (0.2-1.0); Calcium 7.3 MG/DL (8.5-10.1); Osmolality,Calculated 314.8 MOS/KG (273-304); Potassium 4.4 MMOL/L (3.5-5.1); Total Protein 4.5 G/DL (6.4-8.3)
[2017-07-01 05:39] LABS: Magnesium 1.9 MG/DL (1.8-2.4); Phosphorous 4.9 MG/DL (2.5-4.9); Prealbumin 5.1 MG/DL (20-40)
[2017-07-01] MEDS: PROPOFOL 1,000 MG/100 ML BOTTLE IV SCH (06:37)
[2017-07-01] MEDS ORDERED: GENTAMICIN INJ 120 MG in PREMIX 1 EACH IV ONE (09:00)
[2017-07-01] MEDS: CALCIUM (CARBONATE)/VITAMIN D 600 MG-400 UNIT TABLET PO SCH (11:18)
[2017-07-01] MEDS: PANTOPRAZOLE 40 MG TABLET PO SCH (11:18)
[2017-07-01] MEDS: APIXABAN 2.5 MG TABLET PO SCH (11:18)
[2017-07-01] MEDS: LANSOPRAZOLE ODT 30 MG TABLET NG SCH (11:18)
[2017-07-01] MEDS: CHOLECALCIFEROL 400 UNIT TABLET PO SCH (11:19)
[2017-07-01] MEDS: ASPIRIN CHEW 81 MG TABLET PO SCH (11:19)
[2017-07-01] MEDS: ASCORBIC ACID 500 MG TABLET PO SCH (11:19)
[2017-07-01] MEDS: FERROUS SULFATE 325 MG TABLET PO SCH (11:19)
[2017-07-01] MEDS: PHENYLEPHRINE INJ 160 MG in SODIUM CHLORIDE 0.9% 234 ML IV SCH (11:35)
[2017-07-01] MEDS: FUROSEMIDE 40 MG/4 ML VIAL IV SCH (11:37)
[2017-07-01] MEDS: PIPERACILLIN/TAZOBACTAM 3,375 MG in SODIUM CHLORIDE 0.9% 100 ML IV SCH (12:00)
[2017-07-01 18:42] VITALS: BP 15/10
== END 2017-07-01 16:05 | disposition expired | DRG 853 ==
LOC: N.ED 14:17 → SUATTDRO 16:18 → N.EDINP 16:18 → N.CC 18:44
PROVIDERS: ADMIT Internal Medicine Geriatric Medicine; ATTEND Internal Medicine